=== PATIENT | female | born 1990 | race Hispanic/Latino ===

== ENCOUNTER 2022-08-05 15:37 | Inpatient (IN) | payer OTHER ==
[~2022-08-05] VITALS: Ht 160 cm; Wt 61.2 kg
[2022-08-05] MEDS ORDERED: SODIUM CHLORIDE 0.9% 1000ML 1,000 ML IV STA (16:30)
[2022-08-05] MEDS ORDERED: FAMOTIDINE 20 MG/2 ML VIAL IV ONE ×2 (16:30→16:31)
[2022-08-05] MEDS ORDERED: ONDANSETRON HCL INJ 2MG/ML 2ML 2 MG/ML VIAL IV ONE (16:30)
[2022-08-05] MEDS ORDERED: ONDANSETRON HCL INJ 2MG/ML 2ML 2 MG/ML VIAL ONE (16:31)
[2022-08-05] MEDS ORDERED: SODIUM CHLORIDE 0.9% 1000ML 1,000 ML ONE (16:31)
[2022-08-05] MEDS ORDERED: ONDANSETRON HCL INJ 2MG/ML 2ML 2 MG/ML VIAL IV PRN (16:45)
[2022-08-05] MEDS ORDERED: ACETAMINOPHEN 325 MG TAB PO PRN (16:45)
[2022-08-05] MEDS ORDERED: ZOLPIDEM TARTRATE 5 MG TAB PO PRN (16:45)
[2022-08-05] MEDS ORDERED: DIPHENHYDRAMINE HCL INJ 50 MG/ML VIAL IV PRN (16:45)
[2022-08-05] MEDS ORDERED: FUROSEMIDE INJ 10 MG/ML 2 ML VIAL IV PRN (20:00)
[2022-08-05 20:25] LABS: MAGNESIUM 1.9 MG/DL (1.3-2.1)
[2022-08-05 20:32] VITALS: BP 106/70
[2022-08-05 20:45] LABS: THYROID STIMULATING HORMONE 0.498 uIU/mL (0.350-4.940)
[2022-08-05] MEDS ORDERED: SODIUM CHLORIDE 0.9% 250ML 250 ML IV ONE (20:45)
[2022-08-05 21:00] VITALS: BP 106/70
[2022-08-06] VITALS (8 sets, daily range): BP systolic 98–112; BP diastolic 52–76
[2022-08-06] MEDS ORDERED: CYANOCOBALAMIN INJ 1,000 MCG/ML VIAL IM ONE (00:30)
[2022-08-06] MEDS ORDERED: SODIUM CHLORIDE 0.9% 250ML 250 ML ONE (01:18)
[2022-08-06] MEDS: SODIUM CHLORIDE 0.9% 1000ML 1,000 ML IV SCH ×2 (04:36→17:15)
[2022-08-06 07:17] LABS: BASOPHILS # (AUTO) 0.1 (0.0-0.1); BASOPHILS % 1.4 % (0.0-1.0); EOSINOPHILS # (AUTO) 0.2 (0.0-0.4); EOSINOPHILS % 4.3 % (0.0-6.0); HEMATOCRIT 31.8 % (34.2-44.1); HEMOGLOBIN 8.5 g/dL (12.0-16.0); LYMPHOCYTES # (AUTO) 0.9 (1.0-3.2); MEAN CORPUSCULAR HEMOGLOBIN 17.6 pg (28-32); MEAN CORPUSCULAR HGB CONC 26.7 g/dL (31-35); MEAN CORPUSCULAR VOLUME 65.8 fL (81-99); MONOCYTES # (AUTO) 0.3 (0.2-0.8); MONOCYTES % 7.4 % (4.4-11.3); NEUTROPHILS # (AUTO) 2.7 (2.1-6.9); NEUTROPHILS % 64.4 % (38.7-80.0); PLATELET COUNT 279 x10e3/uL (140-360); RED BLOOD COUNT 4.83 x10e6/uL (3.6-5.1); RED CELL DISTRIBUTION WIDTH 28.9 % (11.7-14.4)
[2022-08-06 07:31] LABS: CALCIUM 9.2 mg/dL (8.4-10.2); CREATININE, SERUM 0.64 mg/dL (0.57-1.11)
[2022-08-06 07:54] LABS: ANISOCYTOSIS MARKED; HYPOCHROMASIA MODERATE; MICROCYTOSIS MODERATE; OVALOCYTES FEW; PLATELET ESTIMATE ADEQUATE; PLATELET MORPHOLOGY COMMENT NORMAL; RBC MORPHOLOGY COMMENT ABNORMAL; TARGET CELLS FEW
[2022-08-06] MEDS: CYANOCOBALAMIN INJ 1,000 MCG/ML VIAL IM SCH ×2 (08:34→09:00)
[2022-08-06] MEDS: IRON SUCROSE 100 MG in SODIUM CHLORIDE 0.9% 100 ML IV SCH (08:35)
[2022-08-06] MEDS ORDERED: FAMOTIDINE 20 MG/2 ML VIAL IV SCH (09:00)
[2022-08-07] VITALS (7 sets, daily range): BP systolic 91–108; BP diastolic 56–71
[2022-08-07] MEDS: SODIUM CHLORIDE 0.9% 1000ML 1,000 ML IV SCH (04:48)
[2022-08-07 05:46] LABS: BASOPHILS # (AUTO) 0.1 (0.0-0.1); EOSINOPHILS # (AUTO) 0.2 (0.0-0.4); EOSINOPHILS % 4.5 % (0.0-6.0); HEMATOCRIT 28.9 % (34.2-44.1); HEMOGLOBIN 7.6 g/dL (12.0-16.0); LYMPHOCYTES # (AUTO) 1.1 (1.0-3.2); LYMPHOCYTES % 22.2 % (18.0-39.1); MEAN CORPUSCULAR HEMOGLOBIN 17.5 pg (28-32); MEAN CORPUSCULAR HGB CONC 26.3 g/dL (31-35); MEAN CORPUSCULAR VOLUME 66.6 fL (81-99); MONOCYTES # (AUTO) 0.4 (0.2-0.8); MONOCYTES % 7.8 % (4.4-11.3); NEUTROPHILS # (AUTO) 3.2 (2.1-6.9); NEUTROPHILS % 64.3 % (38.7-80.0); PLATELET COUNT 280 x10e3/uL (140-360); RED BLOOD COUNT 4.34 x10e6/uL (3.6-5.1); RED CELL DISTRIBUTION WIDTH 28.6 % (11.7-14.4)
[2022-08-07 06:05] LABS: ANION GAP 11.8 mmol/L (8-16); CALCIUM 8.3 mg/dL (8.4-10.2); CREATININE, SERUM 0.61 mg/dL (0.57-1.11); POTASSIUM 3.8 mmol/L (3.5-5.1)
[2022-08-07 08:22] LABS: PLATELET ESTIMATE ADEQUATE; PLATELET MORPHOLOGY COMMENT NORMAL; RBC MORPHOLOGY COMMENT ABNORMAL
[2022-08-07 08:23] LABS: ANISOCYTOSIS MODERATE; HYPOCHROMASIA MODERATE; MICROCYTOSIS MODERATE; OVALOCYTES FEW; TEAR DROP CELLS FEW
[2022-08-07] MEDS: CYANOCOBALAMIN INJ 1,000 MCG/ML VIAL IM SCH (09:06)
[2022-08-07] MEDS: IRON SUCROSE 100 MG in SODIUM CHLORIDE 0.9% 100 ML IV SCH (09:07)
[2022-08-11 13:12] LABS: ENDOMYSIAL ANTIBODIES, IGA Negative (Negative)
== END 2022-08-07 11:54 | disposition home or self-care (01) | DRG 379 ==
LOC: FSED 16:08 → ERHOLD 16:36 → MED/SURG2 18:45 → OBSVTOIN 20:00
PROVIDERS: ADMIT Internal Medicine; ATTEND Internal Medicine
PROC: 30233N1 Transfusion of Nonautologous Red Blood Cells into Peripheral Vein, Percutaneous Approach (ICD-10-PCS; 2022-08-05)
PROC: 0DB78ZX Excision of Stomach, Pylorus, Via Natural or Artificial Opening Endoscopic, Diagnostic (ICD-10-PCS; 2022-08-06)
PROC: 0DB68ZX Excision of Stomach, Via Natural or Artificial Opening Endoscopic, Diagnostic (ICD-10-PCS; 2022-08-06)
PROC: 0DB98ZX Excision of Duodenum, Via Natural or Artificial Opening Endoscopic, Diagnostic (ICD-10-PCS; principal; 2022-08-06 13:44)
DX: K29.41 Chronic atrophic gastritis with bleeding (principal); D50.9 Iron deficiency anemia, unspecified; D51.0 Vitamin B12 deficiency anemia due to intrinsic factor deficiency; K20.90 Esophagitis, unspecified without bleeding; Z20.822 Contact with and (suspected) exposure to COVID-19
CPT/HCPCS: 0223U; 36415; 43239; 74177; 80048; 80053; 81003; 81025; 82607; 82746; 82784; 83516; 83540; 83735; 84443; 84466; 85025; 85045; 86256; 86850; 86900; 86920; 87400; 88304; 88305; 88312; 88342; 96374; 96376; 99284; J1756; J1940; J2405; J3420; J7030; J7050; P9016

== ENCOUNTER 2022-08-11 18:12 | Emergency (ER) | payer OTHER ==
[~2022-08-11] VITALS: Ht 160 cm; Wt 61.2 kg
[2022-08-11] MEDS ORDERED: ENOXAPARIN SODIUM INJ 100 MG/ML SYR SC STA (21:33)
[2022-08-11] MEDS ORDERED: ELIQUIS5 MG PO (21:36)
[2022-08-11] MEDS ORDERED: DOXYCYCLINE HY100 MG PO (21:36)
== END 2022-08-11 22:00 | disposition home or self-care (01) ==
LOC: FSED 18:15
DX: I82.612 Acute embolism and thrombosis of superficial veins of left upper extremity (principal); M79.89 Other specified soft tissue disorders; D64.9 Anemia, unspecified
CPT/HCPCS: 93971; 99283